=== PATIENT | female | born 1965 | race Caucasian/White ===

== ENCOUNTER 2021-04-23 20:37 | Emergency (ER) | payer MEDICARE ==
[2021-04-23 21:23] LABS: BASOPHIL 0.4 % (0-2); EOSINOPHIL 1.7 % (0-5); HCT 42.9 % (37.0-47.0); HGB 14.1 g/dl (12.5-16.0); LYMPHOCYTE 34.3 % (15-48); MCH 29.8 pg (25.0-31.0); MCHC 32.9 g/dL (32.0-36.0); MCV 90.7 fL (78.0-100.0); MONOCYTE 6.2 % (0-12); MPV 9.3 fL (6.0-9.5); NEUTROPHIL 57.3 % (41-80); NRBC 0; PLT 270 K/uL (150-400); RBC 4.73 M/uL (4.20-5.40); RDW 13.2 % (11.5-14.0); WBC 9.4 K/uL (4.0-10.5)
[2021-04-23 21:31] LABS: BILIRUBIN NEGATIVE (NEGATIVE); BLOOD TRACE-INTACT Ery/uL (NEGATIVE); CLARITY CLEAR (CLEAR); COLOR YELLOW (YELLOW); GLUCOSE (U) NORMAL (NORMAL); LEUKOCYTES 1+ Leu/uL (NEGATIVE); NITRITE NEGATIVE (NEGATIVE); PROTEIN NEGATIVE (NEGATIVE); SPECIFIC GRAVITY 1.025 (1.001-1.030); UROBILINOGEN 0.2 mg/dL (0.2-1.0); pH 5.5 (5.0-9.0)
[2021-04-23 21:39] LABS: BACTERIA 2+; URINARY WBC TNTC
[2021-04-23 21:52] LABS: LACTIC ACID 1.6 mmol/L (0.4-1.9)
[2021-04-23 21:57] LABS: BILIRUBIN - TOTAL 0.5 mg/dL (0.2-1.0); BUN/CREAT RATIO (CALC) 16.7 RATIO; CREATININE 0.72 mg/dL (0.51-0.95); GLOBULIN (CALCULATION) 4.5 g/dL; POTASSIUM 3.7 mmol/L (3.5-5.1); TOTAL PROTEIN 8.5 g/dL (6.4-8.2)
[2021-04-24] MEDS ORDERED: ONDANSETRON ODT4 MG SL (00:21)
[2021-04-24] MEDS ORDERED: PERCOCET 5-3251 EACH PO (00:21)
[2021-04-24] MEDS ORDERED: CIPRO500 M1 PO (00:21)
== END 2021-04-24 00:40 | disposition home or self-care (01) ==
LOC: FER 20:37
PROVIDERS: Emergency Medicine Emergency Medical Services
DX: N10 Acute pyelonephritis (principal); E11.9 Type 2 diabetes mellitus without complications; I10 Essential (primary) hypertension; Z88.0 Allergy status to penicillin; Z88.5 Allergy status to narcotic agent; Z79.84 Long term (current) use of oral hypoglycemic drugs; Z79.899 Other long term (current) drug therapy
CPT/HCPCS: 36415; 80053; 81001; 83605; 83690; 84145; 85025; 87076; 87088; 87186; J0696; J1170; J1885; J2405